=== PATIENT | female | born 1965 | race Caucasian/White ===

== ENCOUNTER 2018-06-16 08:23 | Day surgery (SDC) | payer OTHER ==
[~2018-06-16] VITALS: Ht 160 cm; Wt 87.5 kg
[~2018-06-16 08:23] MED LIST: ASPI-903 PO; BEN25 PO; CEPH-443 PO; IBUP-1542 PO; LIDOCAINE 2% (SDV) 5 ML INJ ONE; PRED50TA PO; QUIN20TA PO; SITA1TAB7 PO
[2018-06-16 09:38] VITALS: Ht 160 cm; Wt 87.5 kg
[2018-06-16] MEDS ORDERED: METFORMIN (09:43)
[2018-06-16] MEDS ORDERED: FERROUS SULFATE (09:43)
[2018-06-16] MEDS ORDERED: LISINOPRIL (09:43)
--- NOTE | 2018-06-16 09:43 | PREAC ---
Date/Time of Note Date/Time of Note DATE: 06/16/18 TIME: 09:40 Anesthesia Eval and Record Evaluation Time Pre-Procedure Interview DATE: 06/16/18 TIME: 09:40 Age 53 Sex female NPO: 8 hrs Preoperative diagnosis screening Planned procedure colonoscopy Past Medical History Past Medical History: Includes Cardio: HTN, Dyslipidemia GI: Obesity Surgery & Anesthesia Issues No known issue Meds Anticoagulation: No Beta Cielo within 24 hr: No Reason Beta Cielo not given: Pt. not on B-Cielo Active Scripts Diphenhydramine Hcl* (Benadryl*) 25 Mg Cap, 25 MG PO Q6, #30 CAP Prov:CARLYN DE LUNA PA-C 09/16/14 Cephalexin* (Keflex*) 500 Mg Capsule, 500 MG PO QID for 7 Days, CAP Prov:CARLYN DE LUNA PA-C 09/16/14 Prednisone* (Prednisone*) 50 Mg Tablet, 50 MG PO QAM for 3 Days, TAB Prov:CARLYN DE LUNA PA-C 09/16/14 Reported Medications Ibuprofen* (Ibuprofen*) 600 Mg Tablet, 600 MG PO Q6H PRN for PAIN AND/OR INFLAMMATION, TAB 03/08/14 Sitagliptin Phos-Metformin Hcl (Janumet) 50-1,000 Mg Tablet, 1 TAB PO BID, TAB 03/08/14 Aspirin* (Aspirin* Chew) 81 Mg Tab.chew, 81 MG PO DAILY, TAB.CHEW 03/08/14 Quinapril Hcl (Accupril) 20 Mg Tablet, 20 MG PO BID, TAB 03/08/14 Meds reviewed: Yes Allergies Coded Allergies: No Known Allergy (Unverified , 03/08/14) Allergies Reviewed: Yes Labs/Studies Labs Reviewed: Reviewed by anesthesiologist test: N/A (per report, patient had tubal ligation and test pending) Pre-procedure Exam Airway: Adequate mouth opening, Adequate thyromental dist Mallampati: Mallampati II Teeth: Normal Lung: Normal Heart: Normal ASA Physical Status ASA physical status: 2 Emergency: None Planned Anesthetic General/MAC: Mask Planned Pain Management Parenteral pain med Pre-operative Attestations Prior to commencing anesthesia and surgery, the patient was re-evaluated, there was verification of: *The patient's identity *The results of appropriate recent lab work and preoperative vital signs *The above evaluation not changing prior to induction *Anesthetic plan, risk benefits, alternative and complications discussed with patient/family; questions answered; patient/family understands, accepts and wishes to proceed. VALENTIN RODRIGUEZ MD Jun 16, 2018 09:43
[2018-06-16] MEDS ORDERED: PROPOFOL 40 ML ONE (09:45)
[2018-06-16] MEDS ORDERED: LIDOCAINE 2% (SDV) 5 ML INJ ONE (09:46)
[2018-06-16] MEDS ORDERED: HYDROmorphONE 1 MG/5 ML IV SYRINGE IV PRN (10:00)
[2018-06-16] MEDS ORDERED: ONDANSETRON 4 MG INJ IV PRN (10:00)
[2018-06-16] MEDS ORDERED: PROPOFOL 20 ML ONE (10:49)
--- NOTE | 2018-06-16 11:37 | PAC ---
Date/Time of Note Date/Time of Note DATE: 06/16/18 TIME: 11:37 Post-Anesthesia Notes Post-Anesthesia Note Activity: WNL Respiratory function: WNL Cardiovascular function: WNL Mental status: Baseline Pain reasonably controlled: Yes Hydration appropriate: Yes Nausea/Vomiting absent: Yes Comments BP: 130/68 HR: 90 RR: 15 T: 98 SaO2: 99% VALENTIN RODRIGUEZ MD Jun 16, 2018 11:37
== END 2018-06-16 12:32 | disposition home or self-care (01) ==
LOC: GIL 08:23
PROVIDERS: ATTEND Internal Medicine Gastroenterology
DX: Z12.11 Encounter for screening for malignant neoplasm of colon (principal); K64.8 Other hemorrhoids; I10 Essential (primary) hypertension; E78.5 Hyperlipidemia, unspecified
CPT/HCPCS: 45378; 82962; 84703; Z7610